=== PATIENT | female | born 2000 | race Caucasian/White ===

== ENCOUNTER 2018-08-01 20:22 | Emergency (ER) | payer OTHER ==
[~2018-08-01] VITALS: Ht 162.6 cm; Wt 127.3 kg
[~2018-08-01 20:22] MED LIST: ADDERALL 10 MG10 MG PO; CELEXA10 MG PO; CLARITIN 10 MG10 MG PO
[2018-08-01 20:33] VITALS: Ht 162.6 cm; Wt 127.3 kg
[2018-08-01] MEDS ORDERED: PRENATAL VITAMINS (20:34)
[2018-08-01 21:15] LABS: BASOPHILS 0.1 % (0-2); EOSINOPHILS 1.4 % (0-7); HEMOGLOBIN 14.9 g/dL (12-16); IMMATURE GRANULOCYTES 0.3 % (0-5); LYMPHOCYTES 30.2 % (15-50); MCH 29.8 pg (26.0-34.0); MCHC 35.5 g/dL (31.0-37.0); MEAN PLATELET VOLUME 9.6 fL (7.4-10.4); MONOCYTES 7.4 % (2-11); NEUTROPHILS 60.6 % (40-80); PLATELET COUNT 276 10x3/uL (130-400); RDW 13.4 % (11.5-14.5); WBC 10.8 10x3/uL (4.8-10.8)
[2018-08-01 21:23] LABS: APPEARANCE CLEAR (CLEAR); BILIRUBIN NEGATIVE (NEGATIVE); COLOR YELLOW (YELLOW); GLUCOSE NEGATIVE (NEGATIVE); KETONE NEGATIVE (NEGATIVE); NITRITE NEGATIVE (NEGATIVE); PROTEIN NEGATIVE (NEGATIVE); SPECIFIC GRAVITY 1.015 (1.005-1.020); UROBILINOGEN NORMAL (NORMAL)
[2018-08-01 21:24] LABS: BACTERIA MANY /hpf (NONE SEEN); EPITHELIAL CELLS 0-5 /hpf (0-5); RED CELLS - URINE 0-5 /hpf (0-5); WHITE CELLS - URINE 0-5 /hpf (0-5)
[2018-08-01 21:30] LABS: ALBUMIN 3.9 g/dL (3.4-5.0); ALKALINE PHOSPHATASE 55 U/L (46-116); ALT (SGPT) 26 U/L (10-68); BILIRUBIN - TOTAL 0.26 mg/dL (0.2-1.3); CALC OSMOLALITY 274 mosm/kg (275-300); CALCIUM 9.3 mg/dL (8.5-10.1); CARBON DIOXIDE 23.8 mmol/L (21.0-32.0); CHLORIDE - SERUM 103 mmol/L (98-107); CREATININE - SERUM 0.8 mg/dL (0.6-1.3); GLUCOSE 91 mg/dL (74-106); POTASSIUM - SERUM 3.9 mmol/L (3.5-5.1); PROTEIN - SERUM 8.2 g/dL (6.4-8.2); SODIUM 138 mmol/L (136-145); UREA NITROGEN 10 mg/dL (7-18); eGFR NON AFRICAN AMERICAN > 90 mL/min (90-120)
[2018-08-01 21:38] LABS: HCG - QUANTITATIVE (MATERNAL) 483 mIU/mL
[2018-08-01] MEDS ORDERED: ONDANSETRON8 MG/TAB PO (22:35)
[2018-08-01 23:45] VITALS: BP 118/73
== END 2018-08-01 23:45 | disposition home or self-care (01) ==
LOC: D.ER 20:22
PROVIDERS: Family Medicine
DX: O26.891 Other specified pregnancy related conditions, first trimester (principal); Z3A.08 8 weeks gestation of pregnancy; K52.9 Noninfective gastroenteritis and colitis, unspecified; R11.2 Nausea with vomiting, unspecified

== ENCOUNTER 2019-03-14 15:56 | Outpatient (CLI) | payer OTHER ==
[2018-08-01 20:33] VITALS: BMI 48.1
[~2019-03-14 15:56] MED LIST changes: +ONDANSETRON8 MG/TAB PO; +PRENATAL VITAMINS
[2019-03-14 17:25] LABS: APPEARANCE CLEAR (CLEAR); BILIRUBIN NEGATIVE (NEGATIVE); COLOR YELLOW (YELLOW); GLUCOSE NEGATIVE (NEGATIVE); KETONE NEGATIVE (NEGATIVE); NITRITE NEGATIVE (NEGATIVE); PROTEIN NEGATIVE (NEGATIVE); SPECIFIC GRAVITY 1.015 (1.005-1.020); UROBILINOGEN NORMAL (NORMAL)
[2019-03-14 17:26] LABS: BASOPHILS 0.1 % (0-2); EOSINOPHILS 0.2 % (0-7); HEMATOCRIT 34.1 % (36.0-48.0); HEMOGLOBIN 11.1 g/dL (12-16); IMMATURE GRANULOCYTES 0.2 % (0-5); MCH 28.7 pg (26.0-34.0); MCHC 32.6 g/dL (31.0-37.0); MCV 88.1 fL (80.0-100.0); MEAN PLATELET VOLUME 9.6 fL (7.4-10.4); MONOCYTES 5.6 % (2-11); NEUTROPHILS 81.9 % (40-80); PLATELET COUNT 227 10x3/uL (130-400); RBC 3.87 10x6/uL (4.00-5.40); RDW 13.8 % (11.5-14.5); WBC 13.3 10x3/uL (4.8-10.8)
[2019-03-14 17:35] LABS: UDS - AMPHET NEGATIVE QUAL (NEGATIVE); UDS - BARB NEGATIVE QUAL (NEGATIVE); UDS - BENZO NEGATIVE QUAL (NEGATIVE); UDS - COCAINE NEGATIVE QUAL (NEGATIVE); UDS - OPIATE NEGATIVE QUAL (NEGATIVE); UDS - PCP NEGATIVE QUAL (NEGATIVE); UDS - THC NEGATIVE QUAL (NEGATIVE)
[2019-03-14 17:42] LABS: CALC OSMOLALITY 273 mosm/kg (275-300); CALCIUM 8.7 mg/dL (8.5-10.1); CARBON DIOXIDE 24.7 mmol/L (21.0-32.0); CHLORIDE - SERUM 105 mmol/L (98-107); CREATININE - SERUM 0.6 mg/dL (0.6-1.3); GLUCOSE 99 mg/dL (74-106); POTASSIUM - SERUM 3.5 mmol/L (3.5-5.1); SODIUM 138 mmol/L (136-145); UREA NITROGEN 6 mg/dL (7-18); eGFR NON AFRICAN AMERICAN > 90 mL/min (90-120)
[2019-03-14 17:49] LABS: ALBUMIN 2.2 g/dL (3.4-5.0); ALKALINE PHOSPHATASE 71 U/L (46-116); ALT (SGPT) 8 U/L (10-68); BILIRUBIN - TOTAL 0.17 mg/dL (0.2-1.3); PROTEIN - SERUM 6.5 g/dL (6.4-8.2)
== END 2019-03-15 09:30 | disposition home or self-care (01) ==
LOC: D.LDO 15:56 → D.LD 23:54 → D.LDO 03-15 09:30
PROVIDERS: ATTEND Obstetrics & Gynecology
DX: O36.8390 Maternal care for abnormalities of the fetal heart rate or rhythm, unspecified trimester, not applicable or unspecified (principal); Z3A.00 Weeks of gestation of pregnancy not specified